=== PATIENT | male | born 1970 | race Two or more races ===

== ENCOUNTER 2024-05-23 08:52 | Emergency (ER) | payer OTHER, SELFPAY ==
[2024-05-23 08:57] VITALS: BP 123/66; PULSE 72; RESP 18; TEMP 36.5; O2SAT 96
[2024-05-23 09:02] VITALS: PULSE 90; O2SAT 98
[2024-05-23 09:49] VITALS: BP 110/76; PULSE 78; RESP 19; TEMP 36.9; O2SAT 96; BMI 29.9
--- NOTE | 2024-05-23 10:12 | PD.EDANX ---
ED Anxiety RME/HPI General Chief Complaint: Anxiety Stated Complaint: ANXIETY ATTACK Time Seen by Provider: 05/23/24 09:28 Source: patient Arrival date/time: 05/23/24 08:52 This is a 53-year-old male with history of generalized anxiety disorder. States he recently moved from [place] to here and lost his clonazepam medication. Does report he has a prescription pending from [place] has not been able to fill. Patient is requesting for 1 tablet of clonazepam to decrease his anxiety symptoms. Mode of arrival: ambulatory Related Data Previous Rx's ?Medication ?Instructions ?Recorded clonazepam 1 mg tablet 1 mg PO QDAY PRN anxiety #4 tabs 05/23/24 Allergies Allergy/AdvReac Type Severity Reaction Status Date / Time No Known Allergies Allergy Verified 05/23/24 09:04 Review of Systems Review of Systems Systems Reviewed: All systems reviewed, normal except as documented Narrative Review of Systems: Gen: No fever, no chills, no weight loss EYES: No discharge, no visual changes, no pain HEENT: No ear pain, no congestion, no sore throat PULM: No shortness of breath, no cough, no congestion CV: No chest pain, no dyspnea on exertion, no palpitations GI: No nausea, no vomiting, no diarrhea, no pain, no constipation : No frequency, no urgency, no dysuria Musc/skel: No joint pain, no back pain Skin: No rash Psyc: No hallucinations, no depression, +anxiety ED Exam Narrative Physical exam: General: 53y old male appears anxious, answering questions appropriately HENT: normocephalic, atraumatic, EOMI, PERRLA, moist mucous membranes Chest: chest wall is nontender Cardiac: regular rate and rhythm, normal S1 and S2, no murmurs, rubs, or gallops, capillary refill ?2 seconds Pulmonary: clear to auscultation bilaterally, no wheezing, crackles, or rhonchi Abdominal: active bowel sounds, soft, nontender, nondistended Neuro: A&OX3, CN II-XII intact, sensation grossly intact bilaterally in UE and LE. Skin: no rashes, no ecchymosis Ext: no lower extremity edema Course Quality Measures none Orders Category Date Time Status clonazePAM [KlonoPIN] Med 05/23/24 10:06 Discontinued 1 mg PO X1 ONE Vital Signs Vital signs: Vital Signs Temperature 97.7 F 05/23/24 08:57 Pulse Rate 72 05/23/24 08:57 Respiratory Rate 18 05/23/24 08:57 Blood Pressure 123/66 05/23/24 08:57 Pulse Oximetry (%) 96 05/23/24 08:57 Oxygen Delivery Method Room Air 05/23/24 08:57 Anxiety MDM Narrative MDM Narrative: Rx for clonazpam for couple does until patient can get his rx. by his pcp. Patient data External records reviewed:: [facility] previous records Clinical information provided by:: patient Social determinants that could affect healthcare access:: none Patient has the following chronic illnesses:: no How is presenting disease/condition affected by chronic disease/condition?: no chronic disease Evaluation data The following diagnostics were reviewed and interpreted by me:: other (specify) Lab and/or radiology exams considered but not ordered:: no Interpretation Summary: no Medications / Prescriptions Medications or Prescriptions considered but not ordered:: no Medication administrations:: Medication Administration History Discontinued Medications Clonazepam (Clonazepam 0.5 Mg Tablet) 1 mg PO X1 ONE Stop: 05/23/24 10:07 Consultations Consultation(s) initiated? (list below): No Diagnosis Differential diagnosis anxiety: hyperventilation, panic disorder and acute anxiety Most likely diagnosis given after review of the tests above:: Generalized anxiety disorder Admission Indicated Admission indicated?: not indicated Admission Request Was there a request for admission?: No Disposition Plan Disposition Plan: Discharge Discharge Attestation Discharge Attestation: The patient and all family members were given an opportunity to ask questions and understood the discharge instructions. Discharge instructions specifically effects, indications for sooner follow up or return to the emergency department, and the expected course of current diagnosis. Patient condition: Stable Discharge Plan Plan Patient Disposition: HOME (Self Care) Patient condition on transfer: Stable Prescriptions/Referrals Prescriptions/Med Rec: New clonazepam 1 mg tablet 1 mg PO QDAY PRN (Reason: anxiety) Qty: 4 0RF Problem List Clinical Impression: Acute anxiety Patient/Caregiver Discharge Instructions Discharge Activity: activity as tolerated Education Materials: ED Anxiety Reaction Additional Instructions: - Please attempt to make an appointment with your primary doctor for follow-up care and refill on your prescriptions. I did only send a couple tabs to get you through your next refill. Return to the emergency department if there is any worsening symptoms or change in condition. Print Language: Mohawk Stand Alone Forms: Dori Award Info., Patient Portal Info Letter PA/BEHAVIORAL HEALTH CLINICIAN Supervising Physician PA/BEHAVIORAL HEALTH CLINICIAN Supervising Physician: dr castro
[2024-05-23] MEDS: clonazePAM 0.5 MG TABLET 1 MG PO (10:45)
== END 2024-05-23 10:46 | disposition home or self-care (01) ==
LOC: SERX 10:22
PROVIDERS: Emergency Provider Emergency Medicine
DX: F41.9 Anxiety disorder, unspecified (principal)
CPT/HCPCS: 99282; A9270